=== PATIENT | male | born 1965 | race Caucasian/White ===

== ENCOUNTER 2017-02-23 17:06 | Emergency (ER) | payer OTHER ==
[2017-02-23 17:13] VITALS: O2SAT 97
--- NOTE | 2017-02-23 17:29 | EDPHY ---
H & P Stated Complaint: hearing voices - Personal History Current Tetanus/Diphtheria Vaccine: Yes Current Tetanus Diphtheria and Acellular Pertussis (TDAP): Yes - Medical/Surgical History Hx Asthma: No Hx Chronic Respiratory Disease: No Hx Diabetes: No Hx Cardiac Disease: No Hx Renal Disease: No Hx Cirrhosis: No Hx Alcoholism: No Hx HIV/AIDS: No Hx Splenectomy or Spleen Trauma: No Other PMH: diverticulitis, bipolar schizoeffective , borderline personality, major deppression - Social History Smoking Status: Current every day smoker Time Seen by Provider: 02/23/17 17:18 HPI/ROS: CHIEF COMPLAINT: "I am hearing voices" HISTORY OF PRESENT ILLNESS: 51-year-old male history of schizoaffective disorder, moved from [place] recently, in the ER via bus from [place] complaining of worsening auditory and visual hallucination. Denies thoughts of hurting himself or others. Denies suicidal homicidal ideation. Denies illicit drug use. States that he contacted the [facility] and that he necessitates hospitalization due to his inability to manage his current symptoms. PRIMARY CARE PROVIDER:Clara stapleton REVIEW OF SYSTEMS: A ten point review of systems was performed and is negative with the exception of the items mentioned in the HPI PAST MEDICAL & SURGICAL HISTORY: Schizoaffective disorder SOCIAL HISTORY: daily smoker PHYSICAL EXAM (Prior to examination, patient consented to physical exam, hands were washed and my usual and customary physical exam procedures followed) 1) GENERAL: Well-developed, well-nourished, alert and oriented. Appears anxious uncomfortable . 2) HEAD: Normocephalic, atraumatic 3) HEENT: Pupils equal, round, reactive to light bilaterally. Sclera anicteric. 4) NECK: Full range of motion, no meningeal signs. 5) LUNGS: Clear auscultation bilaterally, no wheezes, no rhonchi, no retractions. 6) HEART: Regular rate and rhythm, no murmur, no heave, no gallop. 7) ABDOMEN: No guarding, no rebound, no focal tenderness, 8) MUSCULOSKELETAL: No peripheral edema or discoloration. 9) BACK: no visual or palpable abnormality. 10) SKIN: No rash, no petechiae. 11) Psychiatric: Patient is oriented X 3, he appears anxious DIFFERENTIAL DIAGNOSIS: in no particular order including but not limited to abigail, psychosis, depression (Lois Sands Susan) Constitutional: Initial Vital Signs Temperature (C) 36.6 C 02/23/17 17:11 Heart Rate 99 02/23/17 17:11 Respiratory Rate 16 02/23/17 17:11 Blood Pressure 155/90 H 02/23/17 17:11 O2 Sat (%) 97 02/23/17 17:11 O2 Delivery Mode Room Air Allergies/Adverse Reactions: No Known Allergies Allergy (Unverified 02/23/17 17:14) Home Medications: Medication Instructions Recorded Ativan 02/23/17 INVEGA 02/23/17 Neurontin 02/23/17 Paxil 02/23/17 Medical Decision Making ED Course/Re-evaluation: 7:00 p.m.: Care turned over Dr. Maria Luisa Jordan. Patient awaiting mental health evaluation. He is in the emergency department voluntarily (Lois Sands) Other Provider: Mental health evaluation was performed. He does not meet criteria for hospitalization. 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 He does not appear to be attending to external stimuli. He is not agitated. He is not suicidal or homicidal. He is being treated with Invega. He is requesting Ativan. I have refused to prescribe to administer Ativan to him as I do not feel that it is the appropriate medication in this setting. I am concerned about the possibility of malingering and drug-seeking behavior. He has been provided with referrals for outpatient care and I have encouraged follow-up with [facility]. (Maria Luisa Jordan) - Data Points Laboratory Results: Laboratory Results 02/23/17 17:30 02/23/17 17:30 Departure - Departure Disposition: Home, Routine, Self-Care Clinical Impression: Prescription refill Schizoaffective disorder Qualifiers: Schizoaffective disorder type: other Qualified Code(s): F25.8 - Other schizoaffective disorders Condition: Good Instructions: Schizoaffective Disorder (ED) Additional Instructions: Follow up with your mental health provider this week. Referrals: [facility] [Other] - As per Instructions [facility] [Clinic] - As per Instructions
[2017-02-23 17:48] LABS: % IMMATURE GRANULYOCYTES 0.3 % (0.0-1.1); ABSOLUTE IMMATURE GRANULOCYTES 0.04 10^3/uL (0.00-0.10); ADD DIFF? NO; ADD MORPH? NO; ADD SCAN? NO; ATYPICAL LYMPHOCYTE FLAG 0 (0-99); FRAGMENT RBC FLAG 0 (0-99); HEMOGLOBIN 17.5 g/dL (13.7-17.5); LEFT SHIFT FLG 0 (0-99); LIPEMIA HEMOLYSIS FLAG 90 (0-99); MEAN CELL HEMOGLOBIN 31.3 pg (27.9-34.1); MEAN CELL VOLUME 89.3 fL (81.5-99.8); MEAN PLATELET VOLUME 10.3 fL (8.7-11.7); PLATELET CLUMPS FLAG 10 (0-99); PLATELET COUNT 210 10^3/uL (150-400); RED CELL DISTRIBUTION WIDTH 13.2 % (11.5-15.2)
[2017-02-23 17:55] LABS: ANION GAP 13 mEq/L (8-16); CALCIUM 9.8 mg/dL (8.5-10.4); CARBON DIOXIDE 18 mEq/l (22-31); CHLORIDE 108 mEq/L (97-110); CREATININE 1.2 mg/dL (0.7-1.3); ETHANOL SERUM < 10 mg/dL (0-10); GLOMERULAR FILTRATION RATE > 60; GLUCOSE 117 mg/dL (70-100); POTASSIUM 4.2 mEq/L (3.5-5.2); SALICYLATE < 1.0 mg/dL (2.0-20.0); SODIUM 139 mEq/L (134-144)
[2017-02-23 22:03] VITALS: BP 111/80; PULSE 73; RESP 4; TEMP 98.4
== END 2017-02-23 23:02 | disposition home or self-care (01) ==
DX: F25.8 Other schizoaffective disorders (principal); F17.200 Nicotine dependence, unspecified, uncomplicated
CPT/HCPCS: 80305; G0480